=== PATIENT | female | born 1975 | race Caucasian/White ===

== ENCOUNTER 2018-11-07 02:03 | Emergency (ER) | payer SELFPAY ==
[~2018-11-07] VITALS: Ht 172.7 cm; Wt 53.2 kg
[2018-11-07 02:06] VITALS: BP 139/81; TEMP 97.6
[2018-11-07] MEDS ORDERED: DOXYCYCLINE 10100 MG PO (02:26)
[2018-11-07 03:01] VITALS: PULSE 99
== END 2018-11-07 03:12 | disposition home or self-care (01) ==
LOC: COL.ER 02:03
DX: L02.91 Cutaneous abscess, unspecified (principal); F17.210 Nicotine dependence, cigarettes, uncomplicated; F12.90 Cannabis use, unspecified, uncomplicated

== ENCOUNTER 2023-07-11 21:38 | Emergency (ER) | payer SELFPAY ==
[~2023-07-11] VITALS: Ht 172.7 cm; Wt 52.7 kg
[~2023-07-11 21:38] MED LIST: DOXYCYCLINE 10100 MG PO
[2023-07-11 21:40] VITALS: TEMP 98
[2023-07-11] MEDS ORDERED: Morphine 4 MG/ML VIAL IV ONE (22:00)
[2023-07-11] MEDS ORDERED: Ondansetron 4 MG/2 ML VIAL IV ONE (22:00)
[2023-07-11] MEDS ORDERED: NS 1,000 ML IV ONE (22:00)
[2023-07-11 22:12] LABS: BASO % 0.5 % (0.0-2.0); EOS # 0.2 K/mm3 (0.0-0.7); GRAN # 5.3 K/mm3 (1.4-6.5); GRAN % 71.2 % (42.2-75.2); HEMATOCRIT 37.5 % (37.0-47.0); HEMOGLOBIN 12.2 g/dl (12.5-16.0); LYMPH # 1.4 K/mm3 (1.2-3.4); LYMPH % 18.2 % (20.0-51.0); MEAN CELL VOLUME 90 fl (80.0-100.0); MEAN CORPUSCULAR HEMOGLOBIN 29 pg (27-31); MEAN CORPUSCULAR HGB CONC 33 g/dl (33.0-37.0); MEAN PLATELET VOLUME 11.5 fl (7.4-10.4); MONO # 0.6 K/mm3 (0.1-0.6); MONO % 7.8 % (1.7-9.3); PLATELET COUNT 217 K/mm3 (130-400); RED BLOOD COUNT 4.17 M/mm3 (4.10-5.30); REDCELL DISTRIBUTION WIDTH-CV 16.3 % (11.5-14.5)
[2023-07-11] MEDS ORDERED: NS 50 ML IV SCH (22:18)
[2023-07-11] MEDS ORDERED: Iohexol 300 - 100 ML VIAL IV ONE (22:18)
[2023-07-11 22:19] LABS: INR 1.1 (0.8-3.0); PROTHROMBIN TIME 11.7 SECONDS (9.7-12.8)
[2023-07-11 22:22] LABS: PARTIAL THROMBOPLASTIN TIME 28.9 SECONDS (26.0-37.0)
[2023-07-11 22:32] LABS: ALANINE AMINOTRANSFERASE 23 U/L (0-55); ALBUMIN 3.2 g/dL (3.5-5.0); ALKALINE PHOSPHATASE 62 U/L (40-150); ANION GAP 10 mmol/L (7-16); AST,SGOT 22 U/L (5-34); BILIRUBIN,TOTAL 0.3 mg/dL (0.2-1.2); BLOOD UREA NITROGEN 20 mg/dL (7-19); CALCIUM 8.7 mg/dL (8.4-10.2); CHLORIDE 111 mEq/L (98-107); CREATININE, serum 0.84 mg/dL (0.57-1.11); GLUCOSE 82 mg/dL (70-99); POTASSIUM 3.8 mEq/L (3.5-4.5); SODIUM 139 mEq/L (136-145); TOTAL PROTEIN 6.7 g/dl (6.2-8.1)
[2023-07-11 22:46] LABS: ALCOHOL(ethanol),MEDICAL < 10 mg/dL (0-10)
[2023-07-12] MEDS ORDERED: ROXICODONE 55 MG/TAB PO (00:23)
[2023-07-12] MEDS ORDERED: ZOFRAN ODT4 MG PO (00:23)
[2023-07-12] MEDS ORDERED: NAPROSYN500 MG PO (00:23)
[2023-07-12] MEDS ORDERED: oxyCODONE 5 MG TAB PO ONE (00:30)
[2023-07-12 00:46] VITALS: BP 134/94; PULSE 84
[2023-07-12] MEDS ORDERED: BACITRACIN TOPIC1 TU TOP (01:18)
[2023-07-12] MEDS ORDERED: CEPHALEXIN500 M1 PO (01:18)
== END 2023-07-12 00:46 | disposition home or self-care (01) ==
LOC: COL.ER 21:38
PROVIDERS: Emergency Medicine
DX: S01.01XA Laceration without foreign body of scalp, initial encounter (principal); S60.222A Contusion of left hand, initial encounter; S60.221A Contusion of right hand, initial encounter; S30.1XXA Contusion of abdominal wall, initial encounter; M54.2 Cervicalgia; F17.210 Nicotine dependence, cigarettes, uncomplicated; Z23 Encounter for immunization; V20.59XA Other motorcycle passenger injured in collision with pedestrian or animal in traffic accident, initial encounter; Y92.410 Unspecified street and highway as the place of occurrence of the external cause
CPT/HCPCS: J2270; J2405; J7030; Q9967